=== PATIENT | female | born 1965 | race Two or more races ===

== ENCOUNTER 2023-03-25 09:09 | Emergency (ER) | payer BC, OTHER ==
[~2023-03-25] VITALS: Ht 180.3 cm; Wt 99.8 kg
[2023-03-25 09:45] VITALS: BP 151/90; PULSE 100; RESP 16; TEMP 98.1; O2SAT 97
[2023-03-25] MEDS ORDERED: cefTRIAXone SOD 1,000 MG VL IM ONE (09:45)
[2023-03-25] MEDS ORDERED: PROM1SOL4 PO (10:07)
[2023-03-25] MEDS ORDERED: AZIT500T66 PO (10:07)
== END 2023-03-25 10:15 | disposition home or self-care (01) ==
LOC: EEVIPCON 09:09 → ER 09:09
DX: J03.90 Acute tonsillitis, unspecified (principal); Z79.899 Other long term (current) drug therapy
CPT/HCPCS: 71046; 96372; 99283; J0696